=== PATIENT | female | born 1995 | race Caucasian/White ===

== ENCOUNTER 2018-11-17 15:30 | Emergency (ER) | payer OTHER ==
[2018-11-17] MEDS ORDERED: Dexamethasone 4 MG TAB ONE (17:27)
== END 2018-11-17 17:33 | disposition home or self-care (01) ==
LOC: MADERS 15:30
DX: J02.9 Acute pharyngitis, unspecified (principal); F90.9 Attention-deficit hyperactivity disorder, unspecified type
CPT/HCPCS: 87081; 87430; 87804; 99283; J8540

== ENCOUNTER 2019-01-11 13:29 | Emergency (ER) | payer MEDICAID, OTHER ==
[2019-01-11 13:59] LABS: Bilirubin Negative (Negative); Blood, Urine Negative (Negative); Clarity Hazy (Clear); Glucose, Urine (Dipstick) Negative (Negative); Leukocyte Trace (Negative); Nitrite Negative (Negative); Protein, Urine (Dipstick) Negative (Neg-Trace); Urobilinogen 0.2 mg/dL (0.2-1.0)
[2019-01-11 14:00] LABS: Pregnancy Test - Urine (BHCG) Negative (Negative)
[2019-01-11 14:01] LABS: Pregu Control Background? CLEAR/WHITE (CLR/WHITE); Pregu Control Bar Appear? YES (CONTROL BAR)
[2019-01-11 14:04] LABS: Bacteria/HPF Rare-Few HPF (None Seen); RBC/HPF None Seen HPF (0-3)
[2019-01-11] MEDS ORDERED: Ondansetron ODT 4 MG TAB ONE (14:07)
[2019-01-11] MEDS ORDERED: Ondansetron PF 4 MG/2 ML Vial ONE (14:07)
[2019-01-11] MEDS ORDERED: Loperamide HCl 2 MG CAP ONE ×2 (14:07)
[2019-01-11 14:17] LABS: #Lymphocytes 0.4 thou/uL (1.20-3.40); #Monocytes 0.5 thou/uL (0.11-0.59); #Neutrophils 11.5 thou/uL (1.40-6.50); %Basophils 0.4 % (0.0-1.0); %Eosinophils 0.3 % (0.0-10.0); %Lymphocytes 3.3 % (21.0-51.0); %Neutrophils 92.1 % (42.0-75.0); Mean Corpuscular HGB CONC 33.4 g/dL (32.0-36.0); Mean Corpuscular Hemoglobin 29.8 pg (27.0-31.0); Mean Corpuscular Volume 89.3 fL (78.0-98.0); Mean Platelet Volume 7.2 fL (7.4-10.4); Platelet Count 249 thou/uL (130-400); Red Blood Cell (RBC) Count 4.68 mill/uL (4.20-5.40); White Blood Cell (WBC) Count 12.4 thou/uL (4.8-10.8)
[2019-01-11 14:38] LABS: ALT (SGPT) 9 U/L (8-55); AST (SGOT) 13 U/L (5-34); Albumin 4.2 g/dL (3.5-5.0); Alkaline Phosphatase 45 U/L (40-150); Anion Gap 12 mmol/L (10-20); BUN (Urea Nitrogen) 12 mg/dL (7.0-18.7); Bilirubin, Total 0.9 mg/dL (0.2-1.2); Calc. Creatinine Clearance 0 mL/min (70-130); Calcium 8.9 mg/dL (7.8-10.44); Carbon Dioxide 26 mmol/L (22-29); Chloride 104 mmol/L (98-107); Estimated GFR-MDRD Greater than 90; Globulin 2.9 g/dL (2.4-3.5); Glucose 100 mg/dL (70-105); Lipase 42 U/L (8-78); Potassium 4.4 mmol/L (3.5-5.1); Protein, Total 7.1 g/dL (6.0-8.3); Sodium 138 mmol/L (136-145)
== END 2019-01-11 14:54 | disposition home or self-care (01) ==
LOC: MADERS 13:29
DX: R11.2 Nausea with vomiting, unspecified (principal); R19.7 Diarrhea, unspecified; R10.30 Lower abdominal pain, unspecified; F41.9 Anxiety disorder, unspecified; F31.9 Bipolar disorder, unspecified; F20.9 Schizophrenia, unspecified; F90.9 Attention-deficit hyperactivity disorder, unspecified type
CPT/HCPCS: 80053; 81003; 81015; 81025; 83690; 85025; 87086; 99284; J2405; Q0162